=== PATIENT | female | born 1945 | race Two or more races ===

== ENCOUNTER 2017-11-30 11:18 | Outpatient (CLI) | payer OTHER | END 2017-11-30 11:26 | disposition home or self-care (01) | LOC: MAMO-SONO 11:18 | DX: Z12.31 Encounter for screening mammogram for malignant neoplasm of breast (principal); Z87.898 Personal history of other specified conditions; N60.11 Diffuse cystic mastopathy of right breast; N60.12 Diffuse cystic mastopathy of left breast; R80.8 Other proteinuria ==

== ENCOUNTER 2017-12-31 12:36 | Outpatient (CLI) | payer OTHER | END 2017-12-31 12:40 | disposition home or self-care (01) | LOC: RAD 12:36 | DX: M25.551 Pain in right hip (principal); M25.552 Pain in left hip ==

== ENCOUNTER 2018-09-20 11:07 | Outpatient (CLI) | payer OTHER | END 2018-09-20 11:09 | disposition home or self-care (01) | LOC: RAD 11:07 | DX: M25.562 Pain in left knee (principal) ==

== ENCOUNTER 2018-10-25 11:54 | Outpatient (CLI) | payer OTHER | END 2018-10-25 12:02 | disposition home or self-care (01) | LOC: MRI 11:54 | DX: I67.89 Other cerebrovascular disease (principal); R41.3 Other amnesia | CPT/HCPCS: 70553; A9575 ==

== ENCOUNTER 2018-12-16 11:20 | Outpatient (CLI) | payer OTHER | END 2018-12-16 11:31 | disposition home or self-care (01) | LOC: RAD 11:20 | DX: Z12.31 Encounter for screening mammogram for malignant neoplasm of breast (principal); Z87.898 Personal history of other specified conditions; I10 Essential (primary) hypertension ==

== ENCOUNTER 2018-12-19 13:25 | Outpatient (CLI) | payer OTHER | END 2018-12-19 13:28 | disposition home or self-care (01) | LOC: NUCLEAR 13:25 | DX: M81.0 Age-related osteoporosis without current pathological fracture (principal); Z13.820 Encounter for screening for osteoporosis ==

== ENCOUNTER 2021-11-21 08:36 | Outpatient (CLI) | payer OTHER | END 2021-11-21 08:49 | disposition home or self-care (01) | LOC: RX STUDY 08:36 | PROVIDERS: ATTEND Internal Medicine Gastroenterology | DX: K56.600 Partial intestinal obstruction, unspecified as to cause (principal); K56.609 Unspecified intestinal obstruction, unspecified as to partial versus complete obstruction; C18.9 Malignant neoplasm of colon, unspecified; K59.00 Constipation, unspecified ==

== ENCOUNTER 2023-09-16 12:52 | Outpatient (CLI) | payer OTHER | END 2023-09-16 12:55 | disposition home or self-care (01) | LOC: NUCLEAR 12:52 | PROVIDERS: ATTEND Psychiatry & Neurology Neurology | DX: G30.9 Alzheimer's disease, unspecified (principal) | CPT/HCPCS: 78803; A9557 ==

== ENCOUNTER 2024-01-21 11:59 | Outpatient (CLI) | payer OTHER | END 2024-01-21 12:06 | disposition home or self-care (01) | LOC: RAD 11:59 | DX: I10 Essential (primary) hypertension (principal) ==

== ENCOUNTER 2024-02-14 11:20 | Outpatient (CLI) | payer OTHER | END 2024-02-14 11:21 | disposition home or self-care (01) | LOC: NUCLEAR 11:20 | PROVIDERS: ATTEND Internal Medicine | DX: I73.9 Peripheral vascular disease, unspecified (principal); I87.2 Venous insufficiency (chronic) (peripheral) ==

== ENCOUNTER 2024-02-15 11:03 | Outpatient (CLI) | payer OTHER | END 2024-02-15 11:04 | disposition home or self-care (01) | LOC: NUCLEAR 11:03 | PROVIDERS: ATTEND Internal Medicine | DX: I73.9 Peripheral vascular disease, unspecified (principal); I87.2 Venous insufficiency (chronic) (peripheral) ==